=== PATIENT | female | born 1960 | race Caucasian/White ===

== ENCOUNTER 2022-03-09 15:19 | Emergency (ER) | payer BC, SELFPAY ==
[2022-03-09 17:35] VITALS: BP 202/106; PULSE 120; RESP 18; TEMP 36.3; O2SAT 99; BMI 28.2
--- NOTE | 2022-03-09 17:39 | ECG_ITS ---
Test Reason : HIGH BLOOD PRESSURE Blood Pressure : / mmHG Vent. Rate : 099 BPM Atrial Rate : 099 BPM P-R Int : 128 ms QRS Dur : 076 ms QT Int : 346 ms P-R-T Axes : 052 010 003 degrees QTc Int : 444 ms Normal sinus rhythm Nonspecific ST abnormality Abnormal ECG No previous ECGs available Referred By: Generic ED Physician Electronically Signed By:JAKE SIMMONS
[2022-03-09 20:50] LABS: MANUAL DIFF FLAG NO
[2022-03-09 21:00] LABS: Basophils Percent Auto 0.5 % (0-2); Eosinophils Percent Auto 0.4 % (0-4); Hematocrit 39.1 % (37.0-47.0); Hemoglobin 13.4 g/dl (12.0-16.0); Imm Gran Abs Auto 0.03 X10*3/uL (0.00-0.03); Imm Gran Pct Auto 0.4 % (0.0-0.4); Lymphocytes Absolute Auto 1.5 X10*3/uL (1.2-4.9); Lymphocytes Percent Auto 17.8 % (20-40); Mean Corpuscular HGB Conc 34.3 g/dl (31.0-35.0); Mean Corpuscular Hemoglobin 28.6 pg (27.0-33.0); Mean Corpuscular Volume 83.5 fL (80.0-98.0); Mean Platelet Volume 9.5 fL (9.4-12.3); Monocytes Absolute Auto 0.4 X10*3/uL (0.1-1.2); Monocytes Percent Auto 4.3 % (2-11); Neutrophils Absolute Auto 6.5 x10*3/uL (2.0-8.3); Neutrophils Percent Auto 76.6 % (45-73); Platelet Count 227 X10*3/uL (160-400); Red Blood Count 4.68 X10*6/uL (4.20-5.50); Red Cell Distribution Width 12.4 % (11.0-16.0); White Blood Count 8.4 X10*3/uL (4.8-10.8)
[2022-03-09 21:08] LABS: Anion Gap 12 (12-20); Blood Urea Nitrogen 17 mg/dL (9-16); Calcium 9.3 mg/dL (8.4-10.2); Carbon Dioxide 27 mmol/L (22-29); Chloride 104 mmol/L (96-108); Estimated Glomerular Filt Rate > 60; Glucose Random 109 mg/dL (60-115); Potassium 4.3 mmol/L (3.3-5.1); Sodium 139 mmol/L (135-145)
[2022-03-09 21:16] LABS: Troponin-I High Sensitivity < 3.5 ng/L (<3.5-17.0)
[2022-03-09 22:45] VITALS: BP 160/94; PULSE 106; RESP 20; O2SAT 99
--- NOTE | 2022-03-09 23:00 | ED_ITS ---
HPI - General Adult General Chief complaint: General Medical Stated complaint: High Blood Pressure Sent By [facility] Time Seen by Provider: 03/09/22 23:00 Source: patient Mode of arrival: ambulatory Limitations: no limitations History of Present Illness HPI narrative: Patient with history of borderline hypertension not on any medication gained about 30 lb in last 1 year was at surgeon's office for right inguinal hernia follow-up blood pressure was elevated 200/100 range. Denied any symptoms no headache no chest pain or palpitation Related Data Previous Rx's Medication Instructions Recorded losartan 50 mg tablet 50 mg PO DAILY #30 tabs 03/09/22 metoprolol tartrate 50 mg tablet 50 mg PO BID #60 tabs 03/09/22 (Lopressor) Allergies Allergy/AdvReac Type Severity Reaction Status Date / Time No Known Allergies Allergy Verified 03/09/22 17:34 Review of Systems Review of Systems: Yes all other systems are reviewed and are negative [facility] Social History Social History Advance Directives: No Advance Directives Information Provided: Yes Physical Exam ED Vital Signs: Vital Signs - 24 hr 03/09/22 17:35 03/09/22 22:45 Temperature 97.3 F Pulse Rate 120 H 106 H Respiratory Rate 18 20 Blood Pressure 202/106 H 160/94 H Pulse Oximetry 99 99 Oxygen Delivery Method Room Air Room Air BMI result Body Mass Index 28.2 Appearance: Alert. Oriented X3. No acute distress. Eyes: no pallor ENT: Pharynx normal. Oral Mucosa moist Neck: Normal inspection. Neck supple. CVS: Normal heart rate and rhythm. Pulses normal. Respiratory: No respiratory distress. Equal air entry bilateral, no wheezing/rales/rhonchi Abdomen: Soft and nontender. Bowel sounds are present, no mass palpable, no CVA tenderness Skin: Skin warm and dry. Normal skin color. Normal skin turgor. Extremities: No lower extremity edema. No calf tenderness Neuro: Oriented X 3. No motor deficit. No sensory deficit.No cerebellar signs , cranial nerves II-XII intact Medical Decision Making MDM Narrative Medical decision making narrative: Patient likely with essential hypertension with frequent episodes of hypertension without any end organ damage. Will start patient on Lopressor and losartan advised to follow up with PCP Lab Data Lab results reviewed: Yes I reviewed the patient's lab results. Result diagrams: 03/09/22 20:44 03/09/22 20:44 Labs: Lab Results 03/09/22 03/09/22 03/09/22 Range/Units 20:44 20:44 20:45 WBC 8.4 (4.8-10.8) X10*3/uL RBC 4.68 (4.20-5.50) X10*6/uL Hgb 13.4 (12.0-16.0) g/dl Hct 39.1 (37.0-47.0) % MCV 83.5 (80.0-98.0) fL MCH 28.6 (27.0-33.0) pg MCHC 34.3 (31.0-35.0) g/dl RDW 12.4 (11.0-16.0) % Plt Count 227 (160-400) X10*3/uL MPV 9.5 (9.4-12.3) fL Immature Gran % (Auto) 0.4 (0.0-0.4) % Neut % (Auto) 76.6 H (45-73) % Lymph % (Auto) 17.8 L (20-40) % [place] % (Auto) 4.3 (2-11) % Eos % (Auto) 0.4 (0-4) % Baso % (Auto) 0.5 (0-2) % Lymph # (Auto) 1.5 (1.2-4.9) X10*3/uL [place] # (Auto) 0.4 (0.1-1.2) X10*3/uL Eos # (Auto) 0.0 (0.0-0.4) X10*3/uL Baso # (Auto) 0.0 (0.0-0.2) X10*3/uL Abs Immat Gran (auto) 0.03 (0.00-0.03) X10*3/uL Absolute Neuts (auto) 6.5 (2.0-8.3) x10*3/uL Absolute Nucleated RBC 0.000 (0.0-0.012) X10*3/uL Nucleated RBC % (auto) 0.0 (0.0-0.2) /100WBC Sodium 139 (135-145) mmol/L Potassium 4.3 (3.3-5.1) mmol/L Chloride 104 (96-108) mmol/L Carbon Dioxide 27 (22-29) mmol/L Anion Gap 12 (12-20) BUN 17 H (9-16) mg/dL Creatinine 0.74 (0.5-1.4) mg/dL Estim Creat Clear Calc 87.0 Estimated GFR > 60 Random Glucose 109 (60-115) mg/dL Calcium 9.3 (8.4-10.2) mg/dL Troponin I High Sens < 3.5 (<3.5-17.0) ng/L ECG Data Attestation: I personally reviewed and interpreted this ECG as follows: Interpretation: Normal sinus rhythm heart rate 99 beats per minute normal interval normal axis no acute ST-T changes no acute ischemia Discharge Plan Discharge Clinical Impression: Essential hypertension Patient Disposition: Home, Self-Care Instructions: Chronic Hypertension (ED) Additional Instructions: Decrease salt intake Exercise and try to lose weight Check blood pressure before he take the medication and before you go to bed It should be less than 135/85 Follow-up with your PCP Prescriptions: New losartan 50 mg tablet 50 mg PO DAILY Qty: 30 0RF metoprolol tartrate [Lopressor] 50 mg tablet 50 mg PO BID Qty: 60 0RF
[2022-03-09] MEDS: Losartan Potassium 25 MG TABLET PO (23:25)
[2022-03-09] MEDS: Metoprolol Tartrate 50 MG TABLET PO (23:26)
[2022-03-10 00:05] VITALS: BP 155/92; PULSE 68; RESP 16; O2SAT 95
== END 2022-03-10 00:07 | disposition home or self-care (01) ==
LOC: HO.ED 23:48
PROVIDERS: Emergency Provider Internal Medicine
DX: I10 Essential (primary) hypertension (principal)
CPT/HCPCS: 36415; 80048; 84484; 85025; 93005; 99283; 99284

== ENCOUNTER 2022-04-22 22:22 | Emergency (ER) | payer BC, SELFPAY ==
[2022-04-22 22:34] VITALS: BP 188/94; PULSE 96; RESP 18; TEMP 37.1; O2SAT 98; BMI 28.2
[2022-04-22 22:48] LABS: MANUAL DIFF FLAG NO
[2022-04-22 22:51] LABS: Basophils Absolute Auto 0.1 X10*3/uL (0.0-0.2); Basophils Percent Auto 0.7 % (0-2); Eosinophils Percent Auto 0.6 % (0-4); Hematocrit 35.6 % (37.0-47.0); Hemoglobin 12.1 g/dl (12.0-16.0); Imm Gran Abs Auto 0.02 X10*3/uL (0.00-0.03); Imm Gran Pct Auto 0.3 % (0.0-0.4); Lymphocytes Absolute Auto 1.6 X10*3/uL (1.2-4.9); Mean Corpuscular Hemoglobin 28.5 pg (27.0-33.0); Mean Corpuscular Volume 83.8 fL (80.0-98.0); Mean Platelet Volume 9.7 fL (9.4-12.3); Monocytes Absolute Auto 0.4 X10*3/uL (0.1-1.2); Monocytes Percent Auto 5.8 % (2-11); Neutrophils Absolute Auto 4.6 x10*3/uL (2.0-8.3); Neutrophils Percent Auto 68.6 % (45-73); Platelet Count 222 X10*3/uL (160-400); Red Blood Count 4.25 X10*6/uL (4.20-5.50); Red Cell Distribution Width 11.8 % (11.0-16.0); White Blood Count 6.7 X10*3/uL (4.8-10.8)
[2022-04-22 23:05] LABS: Anion Gap 18 (12-20); Blood Urea Nitrogen 16 mg/dL (9-16); Calcium 9.1 mg/dL (8.4-10.2); Carbon Dioxide 24 mmol/L (22-29); Chloride 104 mmol/L (96-108); Creatinine Clr Calc Pharmacy 80.4; Estimated Glomerular Filt Rate > 60; Glucose Random 112 mg/dL (60-115); Potassium 4.1 mmol/L (3.3-5.1); Sodium 142 mmol/L (135-145)
--- NOTE | 2022-04-23 01:31 | ED.GENADULT ---
HPI - General Adult General Chief complaint: General Medical Stated complaint: elevated BP Time Seen by Provider: 04/23/22 01:20 Source: patient Mode of arrival: ambulatory Limitations: no limitations History of Present Illness HPI narrative: Patient history of hypertension was seen here on 03/09 and started on losartan and metoprolol for the blood pressure patient did not like metoprolol was giving her anxiety and tiredness. PCP tried to change the medication and in collar today patient got very anxious blood pressure on arrival 168/96 patient want to have different medications. No chest pain no palpitation Related Data Previous Rx's Medication Instructions Recorded losartan 50 mg tablet 50 mg PO DAILY #30 tabs 03/09/22 metoprolol tartrate 50 mg tablet 50 mg PO BID #60 tabs 03/09/22 (Lopressor) hydrochlorothiazide 25 mg tablet 25 mg PO QAM #30 tabs 04/23/22 hydroxyzine HCl 25 mg tablet 25 mg PO TID PRN anxiety #30 tabs 04/23/22 Allergies Allergy/AdvReac Type Severity Reaction Status Date / Time No Known Allergies Allergy Verified 03/09/22 17:34 Review of Systems Review of Systems: Yes all other systems are reviewed and are negative [facility] Social History Social History Alcohol intake: current Patient Tobacco Use Status: Never used Tobacco Physical Exam ED Vital Signs: Vital Signs - 24 hr 04/22/22 22:34 Temperature 98.8 F Pulse Rate 96 Respiratory Rate 18 Blood Pressure 188/94 H Pulse Oximetry 98 Oxygen Delivery Method Room Air BMI result Body Mass Index 28.2 Appearance: Alert. Oriented X3. No acute distress. Eyes: PERRLA, No Nystagmus ENT: Pharynx normal. Oral Mucosa moist Neck: Normal inspection. Neck supple. CVS: Normal heart rate and rhythm. Pulses normal. Respiratory: No respiratory distress. Equal air entry bilateral, no wheezing/rales/rhonchi Abdomen: Soft and nontender. Bowel sounds are present, no mass palpable, no CVA tenderness Skin: Skin warm and dry. Normal skin color. Normal skin turgor. Extremities: No lower extremity edema. No calf tenderness Neuro: Oriented X 3. No motor deficit. No sensory deficit.No cerebellar signs , cranial nerves II-XII intact Medical Decision Making [facility] Narrative Medical decision making narrative: Will stop metoprolol start her on hydrochlorothiazide along with losartan will give her Atarax to relax advised to follow-up with PCP Lab Data Lab results reviewed: Yes I reviewed the patient's lab results. Result diagrams: 04/22/22 22:43 04/22/22 22:43 Labs: Lab Results 04/22/22 04/22/22 Range/Units 22:43 22:43 WBC 6.7 (4.8-10.8) X10*3/uL RBC 4.25 (4.20-5.50) X10*6/uL Hgb 12.1 (12.0-16.0) g/dl Hct 35.6 L (37.0-47.0) % MCV 83.8 (80.0-98.0) fL MCH 28.5 (27.0-33.0) pg MCHC 34.0 (31.0-35.0) g/dl RDW 11.8 (11.0-16.0) % Plt Count 222 (160-400) X10*3/uL MPV 9.7 (9.4-12.3) fL Immature Gran % (Auto) 0.3 (0.0-0.4) % Neut % (Auto) 68.6 (45-73) % Lymph % (Auto) 24.0 (20-40) % [place] % (Auto) 5.8 (2-11) % Eos % (Auto) 0.6 (0-4) % Baso % (Auto) 0.7 (0-2) % Lymph # (Auto) 1.6 (1.2-4.9) X10*3/uL [place] # (Auto) 0.4 (0.1-1.2) X10*3/uL Eos # (Auto) 0.0 (0.0-0.4) X10*3/uL Baso # (Auto) 0.1 (0.0-0.2) X10*3/uL Abs Immat Gran (auto) 0.02 (0.00-0.03) X10*3/uL Absolute Neuts (auto) 4.6 (2.0-8.3) x10*3/uL Absolute Nucleated RBC 0.000 (0.0-0.012) X10*3/uL Nucleated RBC % (auto) 0.0 (0.0-0.2) /100WBC Sodium 142 (135-145) mmol/L Potassium 4.1 (3.3-5.1) mmol/L Chloride 104 (96-108) mmol/L Carbon Dioxide 24 (22-29) mmol/L Anion Gap 18 (12-20) BUN 16 (9-16) mg/dL Creatinine 0.79 (0.5-1.4) mg/dL Estim Creat Clear Calc 80.4 Estimated GFR > 60 Random Glucose 112 (60-115) mg/dL Calcium 9.1 (8.4-10.2) mg/dL Discharge Plan Discharge Clinical Impression: Essential hypertension, Anxiety Patient Disposition: Home, Self-Care Instructions: Hypertension (ED), Anxiety (ED) Additional Instructions: Stop metoprolol Continue losartan and start taking that in the morning time Along with hydrochlorothiazide 25 mg daily in the morning Atarax 1 tablet every 6-8 hours for anxiety Follow with PCP Prescriptions: New hydrochlorothiazide 25 mg tablet 25 mg PO QAM Qty: 30 0RF hydroxyzine HCl 25 mg tablet 25 mg PO TID PRN (Reason: anxiety) Qty: 30 0RF No Action losartan 50 mg tablet 50 mg PO DAILY Qty: 30 0RF metoprolol tartrate [Lopressor] 50 mg tablet 50 mg PO BID Qty: 60 0RF
[2022-04-23 02:00] VITALS: BP 151/87; PULSE 75; RESP 16; O2SAT 97
[2022-04-23] MEDS: hydrOXYzine HCL 25 MG TABLET PO (02:13)
[2022-04-23 03:43] VITALS: BP 133/87; PULSE 72
== END 2022-04-23 03:43 | disposition home or self-care (01) ==
PROVIDERS: Emergency Provider Internal Medicine
DX: I10 Essential (primary) hypertension (principal); F41.1 Generalized anxiety disorder; F43.0 Acute stress reaction; Z79.899 Other long term (current) drug therapy
CPT/HCPCS: 36415; 80048; 85025; 99283

== ENCOUNTER → 2025-07-23 08:53 | Outpatient (BNVA) | payer OTHER, SELFPAY | PROVIDERS: Visit Provider Emergency Medicine | DX: S61.220A Laceration with foreign body of right index finger without damage to nail, initial encounter (principal); W27.0XXA Contact with workbench tool, initial encounter; L03.011 Cellulitis of right finger | CPT/HCPCS: 73140; 99203 ==

== ENCOUNTER 2025-07-23 10:09 | Outpatient (AMB) | payer OTHER, SELFPAY ==
--- NOTE | 2025-07-23 11:48 | MHC.OFFVIS ---
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 Intake Note: Yesenia Leonardo 65 yr old right hand dominant female presents today for a W/C injury from 07/22/25. 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 States she might have gotten a splinter on her finger, states she felt something weird while wiping stuff down at work but wasn't able to see anything. Later on at night her finger was swollen and in pain. Seen with [facility] today and was prescribed anti-biotics that she will be picking up today. Today she has soreness and swelling. Denies numbness or tingling. She is limited ROM. 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 She complains of pain & swelling in her index finger. She says she thinks there is something in her index finger, that she thinks may be a splinter or other foreign body. 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 She says she was picking at her finger last night and got something out of her finger, but she is unsure what. She was seen at [facility] and given PO Abx. PFSH Surgical History (Updated 07/23/25 @ 11:55 by SHEILA Brady) Hx of hernia repair Social History (Updated 07/23/25 @ 11:56 by SHEILA Brady) Alcohol intake: current Patient Tobacco Use Status: Never used Tobacco Current occupational status: employed Current occupation: rt hand/ school cafeteria-prep Review of Systems Const All systems reviewed & are unremarkable except as noted in HPI and below Physical Exam Vital Signs: BMI result Body Mass Index 27.4 Const General: cooperative, healthy appearing and no acute distress Orientation/consciousness: patient oriented x3 HEENT Head: Yes normocephalic and Yes atraumatic Eyes EOM: EOMs intact bilaterally Resp Effort & Inspection: normal respiratory effort and able to speak in complete sentences Cardio Jugular venous distension: no JVD Skin General skin exam: turgor normal Rashes: no rashes Neuro General: patient oriented x3 Extrem Other: Evaluation of Right Upper Extremity: The patient is alert, oriented, and in no acute distress Neuro: Median, Ulnar, Radial nerves motor and sensory intact and sensation is normal to the tips of all digits Vascular: Cap refill brisk ROM: She can make a fist and extend all her digits Skin: No lacerations or abrasions. General: No Ecchymosis. Swelling & erythema index finger, from the PIP distally Radial aspect of the DIP joint most tender, also area of most swelling No tenderness over the flexor tendon sheath Little black dot, possible puncture would/possible foreign body Radiographs: Radiograph report from [facility] from today read as no fractures or radiopaque foreign bodies of the index finger. Psych Appearance: grossly normal Affect: normal affect Attitude: cooperative Assessment & Plan Assessment & Plan (1) Infected puncture wound of right index finger: Code(s): S61.230A - Puncture wound without foreign body of right index finger without damage to nail, initial encounter; L08.9 - Local infection of the skin and subcutaneous tissue, unspecified Category: Medical Plan Assessment & Plan: 1. Right index finger infection Possible foreign body, not seen on radiographs Work related injury, date of injury 07/22/2025 I educated her about this condition I explained the signs and symptoms of infection, if the patient develops any new or worsening erythema, drainage, pain, or warmth they should contact the clinic or attend the ED. She will begin taking her PO Abx today, and proceed with saltwater soaking She will be put on the OR schedule for 07/25/25 in case this needs to proceed with surgery, under local The risks and benefits of operative treatment were discussed with the patient and the patient wishes to proceed with surgery. These risks include, but are not limited to risk of damage to blood vessels, nerves, tendons, infection, recurrence, incomplete relief of preoperative symptoms, persistent pain, possible need for further surgery and the risks associated with regional blocks and anesthesia. The plan is to take the patient to the operating room sometime on 07/25/25 for the following procedures: 1. Right index finger I&D, under local All of the preoperative paperwork including the consent was reviewed today. All the patient's questions were answered. She works in a school cafeteria, she was given a note for work to remain out of work for the next 2 weeks at least. She will follow up tomorrow for a wound check, and to decide if we proceed with surgery Scribed for Stacy Stover MD by Jared Persaud, medical illustrator, on 07/23/25 at 12:00 PM, EST. Coding Level of Care Code New Pt Level 4 (92197) Diagnoses Infected puncture wound of right index finger S61.230A; L08.9
[2025-07-23 11:54] VITALS: BMI 27.4
== END 2025-07-23 12:13 | disposition home or self-care (01) ==
LOC: HO.HOS 10:10
PROVIDERS: Visit Provider Orthopaedic Surgery
DX: S61.230A Puncture wound without foreign body of right index finger without damage to nail, initial encounter (principal); L08.9 Local infection of the skin and subcutaneous tissue, unspecified
CPT/HCPCS: 99204

== ENCOUNTER 2025-07-24 08:38 | Outpatient (AMB) | payer OTHER, SELFPAY ==
[2025-07-24 08:50] VITALS: BMI 27.4
--- NOTE | 2025-07-24 08:50 | MHC.OFFVIS ---
Vital Signs 07/24/25 08:50 Height 5 ft 6 in Weight 170 lb BMI 27.4 Intake Visit Reasons: OV-RT IF injury/WC DOI ?-Wound check Intake Note: Yesenia Leonardo 65 yr old right hand dominant female presents today for her wound check for her Right index finger, Work related injury, date of injury 07/22/2025. States today her finger looks better but is still swollen and a little red. Allergies No Known Allergies Allergy (Verified 07/24/25 08:54) HPI HPI OV-RT IF injury/WC DOI ?-Wound check: Details: Yesenia Leonardo is a 65 year old right hand dominant woman who returns for a wound check of her right index finger infection. She has started her Abx and says her fingers feels a little bit better but is still swollen & painful. She complains of pain & swelling in her index finger. She says she pulled some kind of a splinter foreign body out of the wound shortly after she injured it. The finger is feeling better since yesterday. She has had about 3 doses of Augmentin at this time in his also been doing hot salt water soaks. 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 She says she was picking at her finger the other night and got something out of her finger, but she is unsure what. She was seen at [facility] and given PO Abx. [facility] Surgical History (Updated 07/23/25 @ 11:55 by SHEILA Brady) Hx of hernia repair Social History (Updated 07/23/25 @ 11:56 by SHEILA Brady) Alcohol intake: current Patient Tobacco Use Status: Never used Tobacco Current occupational status: employed Current occupation: rt hand/ school cafeteria-prep Physical Exam Vital Signs: BMI result Body Mass Index 27.4 Extrem Other: Evaluation of Right Upper Extremity: The patient is alert, oriented, and in no acute distress Neuro: Median, Ulnar, Radial nerves motor and sensory intact and sensation is normal to the tips of all digits Vascular: Cap refill brisk ROM: She can make a fist and extend all her digits Swelling & erythema index finger, from the PIP distally Radial aspect of the DIP joint most tender, also area of most swelling No tenderness over the flexor tendon sheath Little black dot that we saw yesterday is no longer present. I was able to express some serous looking fluid today in clinic Overall the digit is somewhat less painful, less tender and was somewhat improved range of motion today. Radiographs: Radiograph report from [facility] from today read as no fractures or radiopaque foreign bodies of the index finger. Assessment & Plan Assessment & Plan (1) Infected puncture wound of right index finger: Code(s): S61.230A - Puncture wound without foreign body of right index finger without damage to nail, initial encounter; L08.9 - Local infection of the skin and subcutaneous tissue, unspecified Category: Medical Plan Assessment & Plan: 1. Right index finger infection Possible foreign body, not seen on radiographs Work related injury, date of injury 07/22/2025 I educated her about this condition I explained the signs and symptoms of infection, if the patient develops any new or worsening erythema, drainage, pain, or warmth they should contact the clinic or attend the ED. She will continue with her Abx & saltwater soaking We may cancel her surgery tomorrow if her finger continues to show improvements. Otherwise she will present to the OR tomorrow as scheduled. The risks and benefits of operative treatment were discussed with the patient and the patient wishes to proceed with surgery. These risks include, but are not limited to risk of damage to blood vessels, nerves, tendons, infection, recurrence, incomplete relief of preoperative symptoms, persistent pain, possible need for further surgery and the risks associated with regional blocks and anesthesia. The plan is to take the patient to the operating room sometime on 07/25/25 for the following procedures: 1. Right index finger I&D, under local All of the preoperative paperwork including the consent was reviewed today. All the patient's questions were answered. I will see her again tomorrow in preop hold. I think there is a fair possibility that if her finger improves more before tomorrow that we may be able to proceed with non operative management. We will make that determination tomorrow. She works in a school cafeteria, she was given a note for work to return to work on light duty only, working the register, with a 2lb weight limit and no food handling, or getting her hand wet. This is only if she does not proceed with surgery on 07/25/25. Either way, she will follow up next week for a wound check Scribed for Stacy Stover MD by Jared Persaud, medical receptionist medical assistant, on 07/24/25 at 9:05 AM, EST. Coding Level of Care Code Est Pt Level 3 (29826) Diagnoses Infected puncture wound of right index finger S61.230A; L08.9
== END 2025-07-24 09:31 | disposition home or self-care (01) ==
LOC: HO.HOS 08:42
PROVIDERS: Visit Provider Orthopaedic Surgery
DX: S61.230A Puncture wound without foreign body of right index finger without damage to nail, initial encounter (principal); L08.9 Local infection of the skin and subcutaneous tissue, unspecified
CPT/HCPCS: 99214

== ENCOUNTER → 2025-07-24 08:38 | Outpatient (BNVA) | payer OTHER, SELFPAY | PROVIDERS: Visit Provider Orthopaedic Surgery | DX: S61.230D Puncture wound without foreign body of right index finger without damage to nail, subsequent encounter (principal); L08.9 Local infection of the skin and subcutaneous tissue, unspecified; X58.XXXD Exposure to other specified factors, subsequent encounter; Y99.0 Civilian activity done for income or pay | CPT/HCPCS: 99212 ==

== ENCOUNTER → 2025-07-25 09:37 | Day surgery (SDC) | payer OTHER, SELFPAY ==
[2025-07-25 09:39] VITALS: BMI 27.4
--- NOTE | 2025-07-25 10:05 | PC.NURSE ---
Dr. Stover at bedside to evaluate patients finger. Patient reports no pain, able to touch finger without tenderness and able to bend and move. Dr. Stover educated patient on importance of fiishing antibiotics and continue salt warm water soaks for a few more days. per MD Procedure cancelled at this time. pt agreeable to plan.
== END ==
LOC: HO.SSS 09:38
PROVIDERS: PCP Radiology Vascular & Interventional Radiology; Visit Provider Orthopaedic Surgery
DX: S61.230A Puncture wound without foreign body of right index finger without damage to nail, initial encounter (principal); Z53.09 Procedure and treatment not carried out because of other contraindication; L08.9 Local infection of the skin and subcutaneous tissue, unspecified; Y93.G1 Activity, food preparation and clean up; W26.8XXA Contact with other sharp object(s), not elsewhere classified, initial encounter; Y92.212 Middle school as the place of occurrence of the external cause; Y99.0 Civilian activity done for income or pay
CPT/HCPCS: J0165; J2003